=== PATIENT | male | born 1960 | race Caucasian/White ===

== ENCOUNTER 2017-08-06 16:05 | Emergency (ER) | payer OTHER ==
--- NOTE | 2017-08-06 18:20 | ER Document Report ---
ED Medical Screen (RME) - General Chief Complaint: Fever Stated Complaint: FEVER Time Seen by Provider: 08/06/17 18:03 Notes: 56-year-old male with a recently C5-C6-C7 anterior cervical discectomy and fusion presents emergency department complaining of fevers, sweats and rigors onset for the past 2-3 days associated with complete loss of vision and white out of his vision in the left eye for 2 minutes this morning which then resolved. Denies any other neurologic symptoms. Denies any numbness, tingling , weakness. Has not spoken with his neurosurgeon about this. TRAVEL OUTSIDE OF THE [place] 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 Neurologically grossly intact. Course - Vital Signs Vital signs: Temp Pulse Resp BP Pulse Ox 98.2 F 110 H 20 133/88 H 100 08/06/17 16:20 08/06/17 16:20 08/06/17 16:20 08/06/17 16:20 08/06/17 16:20
--- NOTE | 2017-08-06 18:43 | RADIOLOGY REPORT (SQ) ---
EXAM DESCRIPTION: CHEST 2 VIEWS COMPLETED DATE/TIME: 08/06/2017 6:35 pm REASON FOR STUDY: recent ACDF, amaurosis fugax, fever COMPARISON: None. EXAM PARAMETERS: NUMBER OF VIEWS: two views TECHNIQUE: Digital Frontal and Lateral radiographic views of the chest acquired. RADIATION DOSE: NA LIMITATIONS: none FINDINGS: LUNGS AND PLEURA: No opacities, masses or pneumothorax. No pleural effusion. MEDIASTINUM AND HILAR STRUCTURES: No masses or contour abnormalities. HEART AND VASCULAR STRUCTURES: Heart normal size. No evidence for failure. BONES: No acute findings. HARDWARE: Operative changes lower cervical spine. OTHER: No other significant finding. IMPRESSION: NO ACUTE RADIOGRAPHIC FINDING IN THE CHEST. TECHNICAL DOCUMENTATION: JOB ID: [id number] [employer]- All Rights Reserved Reading location - IP/workstation name: [email or web address]
[2017-08-06 18:48] LABS: AMORPHOUS SEDIMENT,URINE TRACE /HPF; APPEARANCE,URINE CLOUDY; BILIRUBIN,URINE NEGATIVE (NEGATIVE); COLOR,URINE YELLOW; GLUCOSE, URINE NEGATIVE (NEGATIVE); KETONES,URINE NEGATIVE (NEGATIVE); LEUKOCYTE ESTERASE,URINE NEGATIVE (NEGATIVE); NITRITE,URINE NEGATIVE (NEGATIVE); PROTEIN,URINE NEGATIVE (NEGATIVE); URINE SPECIFIC GRAVITY 1.019; UROBILINOGEN,URINE NEGATIVE mg/dL (<2.0)
[2017-08-06 18:52] LABS: ABSOLUTE BASOPHILS # (AUTO) 0.1 10^3/uL (0.0-0.2); ABSOLUTE EOSINOPHILS # (AUTO) 0.3 10^3/uL (0.0-0.6); ABSOLUTE LYMPHOCYTES (AUTO) 2.4 10^3/uL (0.5-4.7); ABSOLUTE MONOCYTES (AUTO) 1.4 10^3/uL (0.1-1.4); ABSOLUTE NEUT (AUTO) 10.2 10^3/uL (1.7-8.2); EOSINOPHILS % (AUTO) 2.2 % (0-6); HEMATOCRIT 46.9 % (37.9-51.0); HEMOGLOBIN 15.9 g/dL (13.5-17.0); LYMPHOCYTES % (AUTO) 16.3 % (13-45); MEAN CORPUSCULAR HEMOGLOBIN 29.9 pg (27.0-33.4); MEAN CORPUSCULAR VOLUME 88 fl (80-97); MONOCYTES % (AUTO) 9.9 % (3-13); PLATELET COUNT 326 10^3/uL (150-450); RED BLOOD COUNT 5.33 10^6/uL (4.35-5.55); RED CELL DISTRIBUTION WIDTH 13.1 % (11.5-14.0); SEGMENTED NEUTROPHILS % (AUTO) 70.6 % (42-78); TOTAL CELLS COUNTED % (AUTO) 100 %; WHITE BLOOD COUNT 14.5 10^3/uL (4.0-10.5)
[2017-08-06 18:59] LABS: INTERNATIONAL RATION (INR) 0.93; PROTHROMBIN TIME 12.9 SEC (11.4-15.4)
[2017-08-06 19:04] LABS: ALANINE AMINOTRANSFERASE 52 U/L (21-72); ALBUMIN 4.3 g/dL (3.5-5.0); ALKALINE PHOSPHATASE 83 U/L (38-126); ANION GAP 13 (5-19); ASPARTATE AMINO TRANSFERASE 28 U/L (17-59); BILIRUBIN,DIRECT 0.4 mg/dL (0.0-0.4); BILIRUBIN,TOTAL 0.4 mg/dL (0.2-1.3); BLOOD UREA NITROGEN 19 mg/dL (7-20); CARBON DIOXIDE 28 mmol/L (22-30); CHLORIDE 103 mmol/L (98-107); GLUCOSE 107 mg/dL (75-110); POTASSIUM 4.8 mmol/L (3.6-5.0); SODIUM 143.6 mmol/L (137-145); TOTAL PROTEIN 7.3 g/dL (6.3-8.2)
--- NOTE | 2017-08-06 20:24 | RADIOLOGY REPORT (SQ) ---
EXAM DESCRIPTION: CT HEAD WITHOUT COMPLETED DATE/TIME: 08/06/2017 8:14 pm REASON FOR STUDY: recent ACDF, amaurosis fugax, fever COMPARISON: None. TECHNIQUE: Axial images acquired through the brain without intravenous contrast. Images reviewed wi th bone, brain and subdural windows. Additional sagittal and coronal reconstructions were generated. Images stored on PACS. All CT scanners at this facility use dose modulation, iterative reconstruction, and/or weight based d osing when appropriate to reduce radiation dose to as low as reasonably achievable (ALARA). [facility]: Dose Right [facility]: CareDose [facility]: Dose Right [facility]: Teradose 4D [facility]: RemoteReality RADIATION DOSE: CT Rad equipment meets quality standard of care and radiation dose reduction techniq ues were employed. CTDIvol: 53.2 mGy. DLP: 991 mGy-cm. mGy. LIMITATIONS: None. FINDINGS: VENTRICLES: Normal size and contour. CEREBRUM: No masses. No hemorrhage. No midline shift. No evidence for acute infarction. Normal gra y/white matter differentiation. No areas of low density in the white matter. CEREBELLUM: No masses. No hemorrhage. No alteration of density. No evidence for acute infarction. EXTRAAXIAL SPACES: No fluid collections. No masses. ORBITS AND GLOBE: No intra- or extraconal masses. Normal contour of globe without masses. CALVARIUM: No fracture. PARANASAL SINUSES: No fluid or mucosal thickening. SOFT TISSUES: No mass or hematoma. OTHER: No other significant finding. IMPRESSION: NORMAL BRAIN CT WITHOUT CONTRAST. EVIDENCE OF ACUTE STROKE: NO. COMMENT: Quality ID # 436: Final reports with documentation of one or more dose reduction techniques (e.g., Automated exposure control, adjustment of the mA and/or kV according to patient size, use of iterative reconstruction technique) TECHNICAL DOCUMENTATION: JOB ID: [id number] [employer]- All Rights Reserved Reading location - IP/workstation name: [email or web address]
--- NOTE | 2017-08-06 20:32 | RADIOLOGY REPORT (SQ) ---
EXAM DESCRIPTION: CTA NECK COMPLETED DATE/TIME: 08/06/2017 8:14 pm REASON FOR STUDY: recent ACDF, amaurosis fugax, fever COMPARISON: None. TECHNIQUE: Axial dynamic scanning technique with dynamic contrast enhancement through the extra-crank hand nial carotid and vertebral arteries. Multiplanar reconstruction. 3-D MIPS and Volume-rendered imag es acquired at the workstation and saved to PACS. Images are reviewed in soft tissue, bone, lung w indows. All CT scanners at this facility use dose modulation, iterative reconstruction, and/or weight based d osing when appropriate to reduce radiation dose to as low as reasonably achievable (ALARA). [facility]: Dose Right [facility]: CareDose [facility]: Dose Right [facility]: Teradose 4D [facility]: [employer] CONTRAST TYPE AND DOSE: contrast/concentration: Isovue 370.00 mg/ml; Total Contrast Delivered: 70.0 ml; Total Saline Delivered: 75.0 ml RENAL FUNCTION: BUN 19 creatinine 1.04 LIMITATIONS: None. FINDINGS: AORTIC ARCH: Normal three-vessel origin. Bilateral subclavian arteries are patent. No d issection. RIGHT CAROTIDS: Patent common, internal and external carotid arteries without suggestion of significa nt stenosis or irregular plaque. No dissection. RIGHT VERTEBRAL: Patent. No dissection. LEFT CAROTIDS: Patent common, internal and external carotid arteries without suggestion of significan t stenosis or irregular plaque. No dissection. LEFT VERTEBRAL: Patent. No dissection. OTHER: No other significant finding. OTHER: 3-D reconstructions confirm findings. IMPRESSION: NORMAL CTA OF THE EXTRA-CRANIAL CAROTID AND VERTEBRAL ARTERIES. COMMENT: Quality ID #[id number]: Measurements of distal internal carotid diameter were used as the denomina tor for stenosis measurement. TECHNICAL DOCUMENTATION: JOB ID: [id number] Quality ID # 436: Final reports with documentation of one or more dose reduction techniques (e.g., Au tomated exposure control, adjustment of the mA and/or kV according to patient size, use of iterative reconstruction technique) 2010 [employer]- All Rights Reserved Reading location - IP/workstation name: [email or web address]
--- NOTE | 2017-08-06 22:31 | ER Document Report ---
ED General - General Chief Complaint: Fever Stated Complaint: FEVER Time Seen by Provider: 08/06/17 18:03 Notes: Patient is a 56-year-old male status post C5 through 7 discectomy on 07/27 who presents with 2 days of intermittent subjective fevers and rigors. The patient states that these episodes come on abruptly, usually after he gets out from underneath being covered up with blankets. He then develops a sensation of being very cold and has uncontrollable shaking. He states that his symptoms are only improved after he gets into a position, covers himself up and eventually gets warm. He states that he has not had any episodes today since approximately 1500. He also states that he had an episode in which he had loss of vision or white out of vision to his left eye but that likewise has resolved. He denies any significant pain, swelling or discomfort to the incisional site on his right lower neck. He contacted the surgical clinic where he had the operation performed and they recommended he come to the emergency department for further evaluation. He denies any headache, focal weakness, focal numbness, chest pain, shortness of breath, or abdominal pain. He denies any history of similar symptoms in the past. TRAVEL OUTSIDE OF THE [place] IN LAST 30 DAYS: No - Related Data Allergies/Adverse Reactions: No Known Allergies Allergy (Unverified 08/06/17 17:47) Past Medical History - General Information source: Patient - Social History Smoking Status: Never Smoker Chew tobacco use (# tins/day): No Frequency of alcohol use: Occasional Drug Abuse: None Lives with: Spouse/Significant other Family History: Reviewed & Not Pertinent Patient has suicidal ideation: No Patient has homicidal ideation: No Renal/ Medical History: Denies: Hx Peritoneal Dialysis Past Surgical History: Reports: Hx Appendectomy, Hx Orthopedic Surgery - C5-C7 spinal stenosis Review of Systems - Review of Systems Notes: Constitutional: Positive for subjective fever and rigors HENT: Negative for sore throat. Eyes: Negative for visual changes. Cardiovascular: Negative for chest pain. Respiratory: Negative for shortness of breath. Gastrointestinal: Negative for abdominal pain, vomiting or diarrhea. Genitourinary: Negative for dysuria. Musculoskeletal: Negative for back pain. Skin: Negative for rash. Neurological: Negative for headaches, weakness or numbness. 10 point ROS negative except as marked above and in HPI. Physical Exam - Vital signs Vitals: Temp Pulse Resp BP Pulse Ox 98.2 F 110 H 20 133/88 H 100 08/06/17 16:20 08/06/17 16:20 08/06/17 16:20 08/06/17 16:20 08/06/17 16:20 Interpretation: Tachycardic - Resolved at the time of my assessment Notes: PHYSICAL EXAMINATION: GENERAL: Well-appearing, well-nourished and in no acute distress. HEAD: Atraumatic, normocephalic. EYES: Pupils equal round and reactive to light, extraocular movements intact, sclera anicteric, conjunctiva are normal. ENT: nares patent, oropharynx clear without exudates. Moist mucous membranes. NECK: Normal range of motion, supple without lymphadenopathy LUNGS: Breath sounds clear to auscultation bilaterally and equal. No wheezes rales or rhonchi. HEART: Regular rate and rhythm without murmurs ABDOMEN: Soft, nontender, normoactive bowel sounds. No guarding, no rebound. No masses appreciated. EXTREMITIES: Normal range of motion, no pitting or edema. No cyanosis. NEUROLOGICAL: Face symmetric. Tongue protrudes midline. Extraocular motions intact. Pupils are 2 mm and equally reactive. Normal speech, normal gait. 5 out of 5 strength in both the distal and proximal upper and lower extremities bilaterally. Sensation is grossly intact throughout. Finger to nose testing normal. Pronator drift normal. PSYCH: Mildly anxious SKIN: Warm, Dry, normal turgor, there is a 2 cm well-healed incisional line along the right low neck without any swelling, induration or erythema Course - Re-evaluation Re-evalutation: 08/06/17 22:35 Patient presents with a very unusual history of periods of what sound to be like rigors each time he gets out from underneath the covers but these are highly intermittent and not present at this time. Although the patient reports that he feels like he has a fever 2 separate temperature checks have not revealed any evidence of a fever. He is status post a C5 through 7 discectomy although the surgical site appears very normal, no erythema, drainage or swelling. He was complaining of some loss of vision to his left eye earlier today which has likewise spontaneously resolved. CT of the neck does not demonstrate any evidence of a carotid artery dissection or thrombus. There is no evidence of a soft tissue infiltration or fluid collection on bedside examination or on CT of the neck. Chest x-ray is clear. His labs are without leukocytosis or any additional findings. A blood culture has been sent although I do not believe patient should be empirically started on antibiotics at this time point. I have explained to the patient and his at the bedside that I am uncertain of the exact etiology of his presentation today based on his reassuring reevaluation at this time point I think it is safe for him to be followed up as an outpatient. They are in agreement with this, verbalized the significant importance of return to the emergency department immediately if he has any new or worsening symptoms. - Vital Signs Vital signs: Temp Pulse Resp BP Pulse Ox 99.3 F 93 18 123/80 96 08/06/17 22:58 08/06/17 22:58 08/06/17 22:58 08/06/17 22:58 08/06/17 22:58 - Laboratory Result Diagrams: 08/06/17 18:40 08/06/17 18:40 Laboratory results interpreted by me: 08/06/17 18:40 WBC 14.5 H Absolute Neutrophils 10.2 H - Diagnostic Test Radiology reviewed: Image reviewed, Reports reviewed Radiology results interpreted by me: 08/06/17 22:36 CT head: No acute intracranial bleed or mass Chest x-ray: No acute infiltrate or pneumothorax Discharge - Discharge Clinical Impression: Rigors, Nausea, Body aches Condition: Good Disposition: HOME, SELF-CARE Additional Instructions: The exact cause of your symptoms is uncertain at this time but your labs, CT scan of your neck and blood vessels in your neck, x-ray of your chest, and vitals are all very reassuring. I am uncertain exactly what is causing your symptoms today. However, you need to follow-up very closely with your general doctor as well as your surgeon. If you have recurrence of your symptoms please take a recorded temperature at home to monitor exactly what your temperature is. Please return immediately to the emergency department if you have a recorded fever at home greater than 101F, have persistent vomiting, develop loss of vision again, have worsening pain, or any other symptoms that are worrisome to you.
[2017-08-06 22:59] VITALS: BP 123/80
== END 2017-08-06 22:58 | disposition home or self-care (01) ==
LOC: EDBD 16:05 → ER 16:05
DX: R68.83 Chills (without fever) (principal); R11.0 Nausea; R52 Pain, unspecified; H53.121 Transient visual loss, right eye; Z98.890 Other specified postprocedural states
CPT/HCPCS: 36415; 70450; 70498; 71046; 80053; 81001; 85025; 85610; 85730; 87040; 99284